=== PATIENT | male | born 1970 | race Two or more races ===

== ENCOUNTER 2017-10-19 11:21 | Emergency (ER) | payer OTHER ==
[~2017-10-19] VITALS: Ht 185.4 cm; Wt 108.0 kg
[2017-10-19 11:28] VITALS: Ht 185.4 cm; Wt 108.0 kg
[2017-10-19 12:31] LABS: BASOPHIL % 0.6 % (0-2); PLATELET COUNT 361 x10^3mcL (130-400); RED CELL DISTRIBUTION WIDTH 13.5 % (11.5-14.5)
[2017-10-19 12:47] LABS: CALCIUM 8.5 mg/dL (8.5-10.1); CARBON DIOXIDE 24.8 mmol/L (21-32); CHLORIDE SERUM 103 mmol/L (98-107); CREATININE SERUM 0.9 mg/dL (0.7-1.3); GFR1 > 60 mL/min; GLUCOSE SERUM 107 mg/dL (74-106); POTASSIUM SERUM 3.7 mmol/L (3.5-5.1); SODIUM SERUM 140 mmol/L (136-145)
[2017-10-19 12:51] LABS: ALBUMIN 3.8 g/dL (3.4-5.0); ALKALINE PHOSPHATASE 67 U/L (46-116); ALT/SGPT 24 U/L (16-63); AMYLASE 41 U/L (25-115); AST/SGOT 23 U/L (15-37); BILIRUBIN TOTAL 0.5 mg/dL (0.20-1.00); LIPASE 337 IU/L (73-393)
[2017-10-19 13:57] LABS: AMPHETAMINE QUAL UR POSITIVE (See below)
[2017-10-19 14:03] LABS: microscopic required? YES; urine erythrocyte 3+ (NEGATIVE)
[2017-10-19 16:21] VITALS: BP 110/70
== END 2017-10-19 16:21 | disposition home or self-care (01) ==
LOC: ED 11:21
PROVIDERS: Emergency Medicine
DX: N23 Unspecified renal colic (principal); N20.0 Calculus of kidney; F17.210 Nicotine dependence, cigarettes, uncomplicated
CPT/HCPCS: 83880; 99406; J1885; J2405; J3010; J7030; Q0092